=== PATIENT | female | born 1950 | race Caucasian/White ===

== ENCOUNTER → 2017-06-14 20:44 | Outpatient (CLI) | payer MEDICARE, OTHER, SELFPAY ==
[2017-06-20 11:21] LABS: HPV APTIMA, High Risk Negative (Negative)
== END ==
PROVIDERS: Visit Provider Obstetrics & Gynecology
DX: Z12.4 Encounter for screening for malignant neoplasm of cervix (principal)
CPT/HCPCS: 88175; G0145

== ENCOUNTER → 2018-07-17 | Outpatient (CLI) | payer MEDICARE, OTHER, SELFPAY ==
[2017-06-14 09:25] VITALS: BMI 36.3
--- NOTE | 2018-07-17 09:54 | EKG12_ITS ---
Test Reason : PRE OP Blood Pressure : / mmHG Vent. Rate : 064 BPM Atrial Rate : 064 BPM P-R Int : 144 ms QRS Dur : 080 ms QT Int : 448 ms P-R-T Axes : 042 069 061 degrees QTc Int : 462 ms Normal sinus rhythm Normal ECG Confirmed by SRAVANTHI SERRANO, QUINTEN ([id number]), assistant editor [place] IRIZARRY ([id number]) on 07/22/2018 9:55:37 AM Referred By: Jose Parker Confirmed By:QUINTEN FISHMAN MD
[2018-07-17 10:43] LABS: Absolute Lymphocyte Count 2.19 X10^3/ul (0.83-4.51); Absolute Neutrophil Count 2.1 X10^3/uL (2.0-7.7); Basophil# 0.06 X10^3/uL; Basophil% 1.2 % (0-1); Eosinophil# 0.25 X10^3/uL; Eosinophils% 4.9 % (0-5); Hematocrit 42.5 % (37-47); Hemoglobin 13.6 g/dl (12.0-15.0); Lymphocyte # 2.19 X10^3/ul (4.0); Lymphocyte % 42.7 % (19-41); Mean Corpuscular Hgb 29.2 pg (27.0-32.0); Mean Corpuscular Volume 91.4 fL (81-99); Mean Platelet Vol. 12.3 fl (6.2-12.0); Monocyte# 0.52 X10^3/uL; Monocyte% 10.1 % (0-10); Neutrophil % 40.9 % (47-70); Platelet Count 205 K/mm3 (150-450); RBC Distribution Width CV 13.5 % (11.6-14.6); RBC Distribution Width SD 45.2 fl (35.1-43.9); Red Blood Count 4.65 M/mm3 (4.2-5.4); White Blood Count 5.1 K/mm3 (4.4-11.0)
[2018-07-17 10:47] LABS: POSITIVE COUNT NO; POSITIVE DIFFERENTIAL NO; POSITIVE MORPHOLOGY NO
[2018-07-17 11:28] LABS: BUN 18 mg/dL (7-18); Creatinine, Serum 0.88 mg/dL (0.55-1.02); EST Glomerular Filtration Rate 68 mL/min (>60); Glucose 97 mg/dL (74-106)
[2018-07-17 11:29] LABS: Anion Gap 8 (5-15); BUN/Creat Ratio 20.5 RATIO (10-20); Calcium,Total 8.6 mg/dL (8.5-10.1); Chloride 108 mmol/L (98-107); Est Glom Filt Rate - Afr Amer 82 mL/min (>60); Potassium 4.3 mmol/L (3.5-5.1); Sodium Level 142 mmol/L (136-145)
== END | disposition home or self-care (01) ==
LOC: LAB.FUTURE 09:44
PROVIDERS: Family Provider Family Medicine; PCP Family Medicine; Referring Provider Surgery; Visit Provider Surgery
DX: Z01.810 Encounter for preprocedural cardiovascular examination (principal); I83.12 Varicose veins of left lower extremity with inflammation; I87.029 Postthrombotic syndrome with inflammation of unspecified lower extremity; M79.662 Pain in left lower leg; M79.89 Other specified soft tissue disorders
CPT/HCPCS: 36415; 80048; 85025; 93005

== ENCOUNTER → 2018-09-03 | Outpatient (CLI) | payer MEDICARE, OTHER, SELFPAY ==
[2017-06-14 09:25] VITALS: BMI 36.3
--- NOTE | 2018-09-03 10:37 | EKG12_ITS ---
Test Reason : PRE OP Blood Pressure : / mmHG Vent. Rate : 065 BPM Atrial Rate : 065 BPM P-R Int : 154 ms QRS Dur : 082 ms QT Int : 430 ms P-R-T Axes : 056 052 055 degrees QTc Int : 447 ms Normal sinus rhythm with sinus arrhythmia Normal ECG Confirmed by JEANINE SERRANO, TYLER ([id number]), production editor AIDA PLUMMER ([id number]) on 09/04/2018 10:43:05 AM Referred By: Jose Parker Confirmed By:TYLER SOLORZANO MD
[2018-09-03 11:53] LABS: Absolute Lymphocyte Count 1.75 X10^3/ul (0.83-4.51); Basophil# 0.06 X10^3/uL; Basophil% 1.3 % (0-1); Eosinophil# 0.29 X10^3/uL; Eosinophils% 6.3 % (0-5); Hematocrit 43.1 % (37-47); Hemoglobin 13.9 g/dl (12.0-15.0); Lymphocyte # 1.75 X10^3/ul (4.0); Lymphocyte % 38.3 % (19-41); Mean Corp Hgb Conc 32.3 g/gl (32-36); Mean Corpuscular Hgb 29.1 pg (27.0-32.0); Mean Corpuscular Volume 90.4 fL (81-99); Mean Platelet Vol. 11.7 fl (6.2-12.0); Monocyte# 0.49 X10^3/uL; Monocyte% 10.7 % (0-10); Neutrophil # 1.98 X10^3/uL (2.7-7.7); Neutrophil % 43.4 % (47-70); Platelet Count 187 K/mm3 (150-450); RBC Distribution Width CV 13.3 % (11.6-14.6); RBC Distribution Width SD 43.2 fl (35.1-43.9); Red Blood Count 4.77 M/mm3 (4.2-5.4); White Blood Count 4.6 K/mm3 (4.4-11.0)
[2018-09-03 12:00] LABS: POSITIVE COUNT NO; POSITIVE DIFFERENTIAL NO; POSITIVE MORPHOLOGY NO
[2018-09-03 12:19] LABS: Anion Gap 7 (5-15); BUN 22 mg/dL (7-18); Calcium,Total 9.1 mg/dL (8.5-10.1); Chloride 108 mmol/L (98-107); Creatinine, Serum 0.96 mg/dL (0.55-1.02); EST Glomerular Filtration Rate 62 mL/min (>60); Est Glom Filt Rate - Afr Amer 75 mL/min (>60); Glucose 94 mg/dL (74-106); Potassium 4.6 mmol/L (3.5-5.1); Sodium Level 143 mmol/L (136-145)
== END | disposition home or self-care (01) ==
LOC: LAB 10:01
PROVIDERS: Family Provider Family Medicine; PCP Family Medicine; Referring Provider Surgery; Visit Provider Surgery
DX: Z01.818 Encounter for other preprocedural examination (principal); I87.2 Venous insufficiency (chronic) (peripheral); I83.12 Varicose veins of left lower extremity with inflammation; I87.029 Postthrombotic syndrome with inflammation of unspecified lower extremity; M79.662 Pain in left lower leg; M79.89 Other specified soft tissue disorders
CPT/HCPCS: 36415; 80048; 85025; 93005

== ENCOUNTER → 2018-09-27 | Outpatient (CLI) | payer MEDICARE, OTHER, SELFPAY ==
--- NOTE | 2018-09-27 13:53 | VDLE_ITS ---
Reason For Study: Leg pain after EVLA Procedure LEFT Exam performed in department. CFV is compressible, spontaneous, phasic, A preliminary report was called and/or faxed competent, and demonstrates normal to Parker. augmentation. Lt FV is partially compressible with bright intraluminal echos, consistent with chronic DVT, normal flow noted. GSV thrombosed s/p EVLA. POP V is compressible, spontaneous, phasic, competent and demonstrates normal augmentation. T/P Trunk is compressible. PTV is compressible. LT PerV is compressible. Interpretation Summary Chronic venous changes are noted in the left femoral vein. The remainder of the left lower extremity deep venous system is patent and compressible. The left common femoral vein and popliteal vein are competent. There is no evidence of left lower extremity acute deep vein thrombosis. The left great saphenous vein is occluded, consistent with a recent endothermal ablation procedure. Ordering Physician: Jose Parker Referring Physician: Landen Hall Performed By: Belkis Dc RVT
== END | disposition home or self-care (01) ==
LOC: CVS 13:49
PROVIDERS: Family Provider Family Medicine; PCP Family Medicine; Referring Provider Surgery; Visit Provider Surgery
DX: M79.605 Pain in left leg (principal); I87.2 Venous insufficiency (chronic) (peripheral); I83.10 Varicose veins of unspecified lower extremity with inflammation
CPT/HCPCS: 93971

== ENCOUNTER → 2018-11-12 | Outpatient (CLI) | payer MEDICARE, OTHER, SELFPAY ==
--- NOTE | 2018-11-12 08:41 | VDLE_ITS ---
Reason For Study: chronic venous insufficiency RIGHT LEFT CFV is compressible, spontaneous, phasic, CFV is compressible, spontaneous, phasic, competent and demonstrates normal competent, and demonstrates normal augmentation. augmentation. Procedure Lt FV is partially compressible with bright Exam performed in department. intraluminal echos, consistent with chronic The exam was diagnostic. DVT, normal flow noted. POP V is compressible, spontaneous, phasic, competent and demonstrates normal augmentation. T/P Trunk is compressible. PTV is compressible. LT PerV is compressible. GSV, SSV, and ASV are thrombosed S/P EVLA. ASV below the knee is incompetent for greater than .5 seconds. ASV measures .24 x .28 cm. ASV communicates with an incompetent Block Mason V that is 15 cm proximal to the medial malleolus. A second ASV below the knee is incompetent for greater than .5 seconds. ASV measures .27 x .3cm. ASV communicates with an incompetent Block Mason V that is 17 cm proximal to the medial malleolus. Interpretation Summary Chronic venous changes are noted in the left femoral vein, which is partially compressible and demonstrates bright intraluminal echogenicity. The remainder of the left lower extremity deep venous system is patent and compressible. The left common femoral vein and popliteal vein are competent. There is no evidence of left lower extremity acute deep vein thrombosis. The left great saphenous vein, small saphenous vein, and accessory saphenous veins (S1 and S4) appear to be occluded, consistent with a prior endothermal ablation procedure. 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 Ordering Physician: Jose Parker Performed By: Wang Alvarez RVT
== END | disposition home or self-care (01) ==
LOC: CVS 08:39
PROVIDERS: Family Provider Family Medicine; PCP Family Medicine; Referring Provider Surgery; Visit Provider Surgery
DX: M79.605 Pain in left leg (principal); I87.2 Venous insufficiency (chronic) (peripheral); I83.10 Varicose veins of unspecified lower extremity with inflammation
CPT/HCPCS: 93971